=== PATIENT | male | born 1965 | race African-American/Black ===

== ENCOUNTER 2017-07-12 19:14 | Emergency (ER) | payer SELFPAY ==
[2017-07-12 20:00] LABS: #Basophils 0.1 thou/uL (0.0-0.2); #Eosinphils 0.4 thou/uL (0.0-0.7); #Lymphocytes 2.7 thou/uL (1.20-3.40); #Monocytes 0.6 thou/uL (0.11-0.59); #Neutrophils 2.4 thou/uL (1.40-6.50); %Eosinophils 5.9 % (0.0-10.0); %Lymphocytes 43.6 % (21.0-51.0); %Monocytes 10.1 % (0.0-10.0); %Neutrophils 39.4 % (42.0-75.0); Hemoglobin 11.3 g/dL (14.0-18.0); Mean Corpuscular HGB CONC 31.7 g/dL (32.0-36.0); Mean Corpuscular Hemoglobin 33.4 pg (27.0-31.0); Mean Platelet Volume 6.8 fL (7.4-10.4); Platelet Count 343 thou/uL (130-400); RBC Distribution Width 12.3 % (11.5-14.5); Red Blood Cell (RBC) Count 3.39 mill/uL (4.70-6.10); White Blood Cell (WBC) Count 6.1 thou/uL (4.8-10.8)
[2017-07-12] MEDS ORDERED: Adacel (T-DAP) 0.5 ML VIAL ONE (20:01)
[2017-07-12 20:13] LABS: ALT (SGPT) 23 U/L (8-55); AST (SGOT) 61 U/L (5-34); Alcohol 347 mg/dL (Less than 10); Alkaline Phosphatase 112 U/L (40-150); Anion Gap 19 mmol/L (10-20); BUN (Urea Nitrogen) 10 mg/dL (8.9-20.6); Bilirubin, Total 0.6 mg/dL (0.2-1.2); Calc. Creatinine Clearance 0 mL/min (70-130); Calcium 8.9 mg/dL (7.8-10.44); Carbon Dioxide 20 mmol/L (22-29); Chloride 106 mmol/L (98-107); Estimated GFR-MDRD Greater than 90; Globulin 3.3 g/dL (2.4-3.5); Glucose 92 mg/dL (70-105); Potassium 3.5 mmol/L (3.5-5.1); Protein, Total 7.3 g/dL (6.0-8.3); Salicylate Less than 8.0 mg/dL (15.0-30.0); Sodium 141 mmol/L (136-145)
[2017-07-12 20:15] LABS: CKMB 2.3 ng/mL (0-6.6); Troponin I Less than 0.010 ng/mL (< 0.028)
--- NOTE | 2017-07-12 20:24 | CT ---
NONCONTRAST HEAD CT 07/12/17 HISTORY: Injury. Patient fell from a standing position. Laceration to the left eye. COMPARISON: None. TECHNIQUE: Noncontrast head CT is performed from skull base to skull vertex. FINDINGS: No parenchymal hemorrhage. No extra-axial hematoma. No midline shift. Basilar cisterns are patent. Br ain volume is age appropriate. Cortical finley-white matter differentiation is preserved. White matter hypodensities in the left and right centrum semiovale are noted. Calvarium is intact. Adequate aeration of the mastoid air cells. Left sinus disease is identified. IMPRESSION: No intracranial posttraumatic sequela. POS: H
--- NOTE | 2017-07-12 20:32 | CT ---
EXAM: CERVICAL SPINE CT WITHOUT CONTRAST 07/12/17 HISTORY: Fall. Posttraumatic pain. COMPARISON: None. TECHNIQUE: Cervical spine CT is performed without contrast. Coronal and sagittal reformatted images are submitte d for interpretation. FINDINGS: The visualized soft tissue neck structures are unremarkable. Upper mediastinum and lung apices are un remarkable. Central spinal canal and neural foramina are patent. Evaluation is limited due to techniq ue. The lateral masses of C1 and C2 articulate appropriately. Odontoid process is intact. Appropriate art iculation of the facets. Straightening of the normal cervical lordosis likely due to patient position , muscle spasm or cervical collar. Moderate degenerative change at C6-C7 with end plate sclerosis due to degenerative change. Cervical spine vertebral body height is maintained. No fracture. There is asymmetric edema involving the right facial soft tissues as well as the right masseter muscl e and the soft tissues along the right mandible. There is evidence of lucency involving the posterior most right unerupted molar teeth. There is also destructive changes involving the posterior right ma ndible with what appears to be fragmentation of the mandible. Findings are presumed to be chronic, in terms of a possible fracture. However, the asymmetric soft tissue swelling does not exclude a possib le acute component. Additionally, the possibility of underlying infectious process cannot be excluded given poor dentition. Clinical correlation is essential. IMPRESSION: 1. No cervical spine fracture. 2. Asymmetric soft tissue swelling involving the right aspect of the mandible and face. There is destructive change in the right mandible with fragmentation. Sclerosis of the margin does suggest a chronic process. However, there is evidence of swelling which may be due to a more acute injury. An i nfectious process cannot be excluded. Clinical correlation is essential. POS: DIANNA
[2017-07-12 20:45] LABS: MDiff Complete? YES; Macrocytosis SLIGHT = 6-15 cells (100X) (0-5/hpf); PLT Morphology Comment Appears Adequate
== END 2017-07-12 20:54 | disposition home or self-care (01) ==
LOC: NAV ERS 19:14
DX: S01.81XA Laceration without foreign body of other part of head, initial encounter (principal); F10.129 Alcohol abuse with intoxication, unspecified; F17.200 Nicotine dependence, unspecified, uncomplicated; W18.30XA Fall on same level, unspecified, initial encounter
CPT/HCPCS: 12011; 70450; 72125; 80053; 80307; 82553; 84484; 85025; 90471; 90715; 93005

== ENCOUNTER 2017-11-15 23:01 | Emergency (ER) | payer OTHER ==
[2017-11-15] MEDS ORDERED: Amoxicillin/Potassium Clav 875 MG TAB ONE (23:23)
[2017-11-15] MEDS ORDERED: Ibuprofen 800 MG TAB ONE (23:23)
== END 2017-11-15 23:30 | disposition home or self-care (01) ==
LOC: NAV ERS 23:01
DX: K04.7 Periapical abscess without sinus (principal); K02.9 Dental caries, unspecified; F17.200 Nicotine dependence, unspecified, uncomplicated
CPT/HCPCS: 99406